=== PATIENT | female | born 1945 | race Caucasian/White ===

== ENCOUNTER 2020-09-24 12:53 | Emergency (ER) | payer MEDICARE, OTHER ==
[~2020-09-24] VITALS: Ht 160 cm; Wt 68.1 kg
[2020-09-24 12:58] VITALS: BP 112/58
--- NOTE | 2020-09-24 13:08 | PHYS DOC ---
Past History Past Surgical History: Hysterectomy General Adult EDM: Chief Complaint: INSECT BITE HPI: HPI: Patient is a 74-year-old female who presents to the ER today after multiple yellowjacket stings. Patient was brought in by EMS for an allergic reaction. Patient reports that following the sting she had lightheadedness. Patient reports that she is no longer lightheaded. She denies shortness of breath, difficulty swallowing, difficulty breathing, chest pain. She ports that currently just feels like she is being stung all over. Patient is not hypoxic and her vital signs are stable. Patient was given 50 mg of Benadryl by EMS prior to arrival and 500 cc of lactated Ringer's. Review of Systems: Review of Systems: 14 body systems of the review of systems have been reviewed. See HPI for pertinent positive and negative responses, otherwise all other systems are negative, nonpertinent or noncontributory Physical Exam: PE: Constitutional: Well developed, well nourished, no acute distress, non-toxic appearance. [] HENT: Normocephalic, atraumatic, bilateral external ears normal, oropharynx moist, no oral exudates, nose normal, patient maintaining secretions, no oral edema [] Eyes: PERRL, conjunctiva normal, no discharge. [] Neck: Normal range of motion, no stridor Cardiovascular:Heart rate regular rhythm, no murmur [] Lungs & Thorax: Bilateral breath sounds clear to auscultation [] Abdomen: Bowel sounds normal, soft, no tenderness, no masses, no pulsatile masses. [] Skin: Warm, dry, no rash, several areas of redness/splotchiness to but lateral lower and upper extremities and trunk Back: Normal range of motion Extremities: No tenderness, no cyanosis, no clubbing, ROM intact, no edema. [] Neurologic: Alert and oriented X 3, normal motor function, normal sensory function, no focal deficits noted. [] Psychologic: Affect normal, judgement normal, mood normal. [] Current Patient Data: Vital Signs: Vital Signs Date Time Temp Pulse Resp B/P (MAP) Pulse Ox O2 Delivery O2 Flow Rate FiO2 09/24/20 12:58 97.2 68 14 112/58 98 Room Air EKG: EKG: [] Radiology/Procedures: Radiology/Procedures: [] Heart Score: C/O Chest Pain: No Risk Factors: Risk Factors: DM, Current or recent (<one month) smoker, HTN, HLP, family history of CAD, obesity. Risk Scores: Score 0 - 3: 2.5% MACE over next 6 weeks - Discharge Home Score 4 - 6: 20.3% MACE over next 6 weeks - Admit for Clinical Observation Score 7 - 10: 72.7% MACE over next 6 weeks - Early Invasive Strategies Course & Med Decision Making: Course & Med Decision Making Pertinent Labs and Imaging studies reviewed. (See chart for details) [] Patient is a 74-year-old female being seen for an allergic reaction following multiple yellowjacket stings. Patient was treated by EMS with 50 mg of Benadryl. In the ER she was given Pepcid, Solu-Medrol and fluids. Patient reports feeling improvement in her symptoms. She continues to denies shortness of breath or difficulty swallowing. Patient's vital signs are stable and her physical exam is reassuring. Patient was monitored in the ER for improvement of symptoms. I discussed with patient all findings and diagnostic testing as well as the need to follow-up with PCP for further evaluation and treatment or return to the ER if any new or worsening symptoms. Strict return precautions were also discussed at length. Patient voiced understanding and agreement with the plan. Patient is hemodynamically stable at the time of disposition. Thao Disclaimer: Thao Disclaimer: This electronic medical record was generated, in whole or in part, using a voice recognition dictation system. Departure Departure: Impression: Primary Impression: Allergic reaction to insect sting Qualified Codes: T63.481A - Toxic effect of venom of other arthropod, accidental (unintentional), initial encounter Disposition: HOME / SELF CARE / HOMELESS Condition: GOOD Patient Instructions: Insect Sting Allergy Additional Instructions: You were seen in the ER for an allergic reaction to an insect sting. You were monitored in the ER. Your physical exam was reassuring. You were treated in the ER with Benadryl, Pepcid, steroids, and fluids. At home you can continue to take 20 mg of Pepcid and Benadryl as needed for any rash or itchiness. You need to return to the ER if you develop shortness of breath, difficulty breathing, difficulty swallowing, drooling, chest pain, syncope. Please follow-up with your primary care provider tomorrow regarding your ER visit. EMERGENCY DEPARTMENT GENERAL DISCHARGE INSTRUCTIONS Thank you for coming to [facility] (ED) today and trusting us with you care. We trust that you had a positivie experience in our Emergency Department. If you wish to speak to the department management, you may call the director at [phone]. YOUR FOLLOW UP INSTRUCTIONS ARE FOLLOWS: 1. Do you have a private Doctor? If you do not have a private doctor, please ask for a resource list of physicians or clinics that may be able to assist you with foll ow up care. 2. The Emergency Physician has interpreted your x-rays. The X-Ray specialist will also review them. If there is a change in the findings, you will be notified in 48 hours when at all possible. 3. A lab test or culture has been done, your results will be reviewed and you will be notified if you need a change in treatment. ADDITIONAL INSTRUCTIONS AND INFORMATION: 1. Your care today has been supervised by a physician who is specially trained in emergency care. Many problems require more than one evaluation for a complete diagnosis and treatment. We recommend that you schedule your follow up appointment as re commended to ensure complete treatment of you illness or injury. If you are unable to obtain follow up care and continue to have a problem, or if your condition worsens, we recommend that you return to the ED. 2. We are not able to safely determine your condition over the phone nor are we able to give sound medical advice over the phone. For these safety reasons, if you call for medical advice we will ask you to come to the ED for further evaluation. 3. If you have any questions regarding these discharge instructions please call the ED at [phone]. SAFETY INFORMATION: In the interest of safety, wellness, and injury prevention; we encourage you to wear your sealbelt, if you smoke; quite smoking, and we encourage family to use a protective helmet for bicycling and other sporting events that present an increased risk for head injury. IF YOUR SYMPTOMS WORSEN OR NEW SYMPTOMS DEVELOP, OR YOU HAVE CONCERNS ABOUT YOUR CONDITION; OR IF YOUR CONDITION WORSENS WHILE YOU ARE WAITING FOR YOUR FOLLOW UP APPOINTMENT; EITHER CONTACT YOUR PRIMARY CARE DOCTOR, THE PHYSICIAN WHOSE NAME AND NUMBER YOU WERE GIVEN, OR RETURN TO THE ED IMMEDIATELY. JOHNY HAJI APRN Sep 24, 2020 13:08
[2020-09-24] MEDS ORDERED: IV NORMAL SALINE 1,000ML 1,000 ML IV ONE (13:15)
[2020-09-24] MEDS ORDERED: FAMOTIDINE 20 MG/2 ML VIAL IVP ONE (13:15)
[2020-09-24] MEDS ORDERED: methylPREDNISolone SOD SUCC PF 125 MG/2 ML VIAL. IV ONE (13:15)
== END 2020-09-24 15:05 | disposition home or self-care (01) ==
LOC: ER 12:53
DX: T78.40XA Allergy, unspecified, initial encounter (principal); R42 Dizziness and giddiness; X58.XXXA Exposure to other specified factors, initial encounter
CPT/HCPCS: 96361; 96374; 96375; 99284; J2930; J3490; J7030

== ENCOUNTER 2021-03-27 19:25 | Emergency (ER) | payer MEDICARE, OTHER ==
[~2021-03-27] VITALS: Ht 160 cm; Wt 68.1 kg
[2021-03-27 19:37] VITALS: BP 151/73
--- NOTE | 2021-03-27 19:49 | PHYS DOC ---
Past History Past Surgical History: Hysterectomy Alcohol Use: None Adult General Chief Complaint Chief Complaint: LACERATION/AVULSION HPI HPI Patient is a otherwise healthy 75-year-old female, up-to-date on tetanus who presents with laceration to the right distal forearm, it happened at home on a piece of sharp metal on the dryer she was doing laundry about an hour before co roshan. Denies any other injuries. Review of Systems Review of Systems Systems otherwise unremarkable except noted in HPI Allergies Allergies Allergies Coded Allergies Type Severity Reaction Last Updated Verified No Known Drug Allergies 09/24/20 No Physical Exam Physical Exam Constitutional: Well developed, well nourished, no acute distress, non-toxic starr earance. [] HENT: Normocephalic, atraumatic, Extremities: Neurovascular exam intact, 3 cm linear superficial laceration across the anterior portion of the distal right forearm just proximal to the bend of the wrist, no tenderness, no cyanosis, no clubbing, ROM intact, no edema. [] Neurologic: Alert and oriented X 3, normal motor function, normal sensory function, no focal deficits noted. [] Psychologic: Affect normal, judgement normal, mood normal. [] Current Patient Data Vital Signs Vital Signs Date Time Temp Pulse Resp B/P (MAP) Pulse Ox O2 Delivery O2 Flow Rate FiO2 03/27/21 19:37 98.2 84 16 151/73 (99) 97 Room Air EKG EKG [] Radiology/Procedures Radiology/Procedures [] Heart Score C/O Chest Pain: No Risk Factors: Risk Factors: DM, Current or recent (<one month) smoker, HTN, HLP, family history of CAD, obesity. Risk Scores: Risk Factors: DM, Current or recent (<one month) smoker, HTN, HLP, family history of CAD, obesity. Course & Med Decision Making Course & Med Decision Making Patient is a 75-year-old female who presents with distal forearm laceration Vital signs not concerning. Physical exam noted above. Up-to-date on tetanus. Wound cleaned. Topical lidocaine placed per anesthesia. Anesthesia achieved. 4 sutures of 4-0 Ethilon placed successfully. Cleaned, bandaged. Patient with no immunocompromise state. Discussed symptom treatment at home if needed. Advised to follow-up with primary care in 5 to 7 days for wound check and suture removal. Gave return precautions to the ED. Family grateful, verbalized understanding and agreed with plan of discharge. Dragon Disclaimer Dragon Disclaimer This electronic medical record was generated, in whole or in part, using a voice recognition dictation system. Departure Departure: Impression: Primary Impression: Forearm laceration Disposition: HOME / SELF CARE / HOMELESS Condition: GOOD Referrals: TREV TORRES MD (PCP) Patient Instructions: Sutured Wound Care Additional Instructions: Thank you for coming into the emergency department tonight and allowing us to take care of you. Please read the attached information very carefully to go back over things we discussed. You can use Tylenol, ibuprofen and ice as needed. Please keep your wound clean, dry and bandaged tightly, as we discussed your laceration is right of the joints and you must be careful not to pull your stitches out. Please follow-up in the morning with your primary care physician to update on ED visit and set up an appointment in 5 to 7 days for wound check and suture removal. If you are unable to get in to your primary care physician you can return to the emergency department. Please come back with new or concerning symptoms as we discussed. GRAYSON CROWLEY MD Mar 27, 2021 19:49
== END 2021-03-27 20:24 | disposition home or self-care (01) ==
LOC: ER 19:25
DX: S51.811A Laceration without foreign body of right forearm, initial encounter (principal); W26.8XXA Contact with other sharp object(s), not elsewhere classified, initial encounter; Y93.89 Activity, other specified; Y92.89 Other specified places as the place of occurrence of the external cause; Y99.8 Other external cause status
CPT/HCPCS: 12002; 99282